=== PATIENT | female | born 1985 | race Two or more races ===

== ENCOUNTER 2021-10-16 07:29 | Inpatient (IN) | payer OTHER ==
[~2021-10-16] VITALS: Ht 160 cm; Wt 90.3 kg
[2021-10-16] MEDS ORDERED: PRENATAL TABLE1 EAC1 PO (09:35)
== END 2021-10-18 17:14 | disposition home or self-care (01) | DRG 788 ==
LOC: OB/GYN 07:29 → LDR 07:29 → OB/GYN 16:24
PROVIDERS: ADMIT Obstetrics & Gynecology; ATTEND Obstetrics & Gynecology
PROC: 4A1HXCZ Monitoring of Products of Conception, Cardiac Rate, External Approach (ICD-10-PCS; 2021-10-16)
PROC: 10D00Z1 Extraction of Products of Conception, Low, Open Approach (ICD-10-PCS; principal; 2021-10-16 14:15)
DX: O62.0 Primary inadequate contractions (principal); O36.8130 Decreased fetal movements, third trimester, not applicable or unspecified; Z3A.39 39 weeks gestation of pregnancy; Z37.0 Single live birth; Z20.822 Contact with and (suspected) exposure to COVID-19